=== PATIENT | male | born 1980 | race Caucasian/White ===

== ENCOUNTER 2017-01-31 11:10 | Inpatient (IN) | payer OTHER ==
[~2017-01-31] VITALS: Ht 179.1 cm; Wt 106.3 kg
[~2017-01-31 11:10] MED LIST: CITALOPRAM HBR20 MG PO; FLEXERIL10 MG PO; IBUPROFEN200 M1 PO; KEFLEX500 MG PO; KLONOPIN0.5 M1 PO; MOTRIN800 MG PO; NAPROSYN500 MG PO; NOHOMEMEDS; PERCOCET 5/31 TABLET PO; PERCOCET 7.51 TABLET PO; PRILOSEC OTC20 MG PO; TRAMADOL HCL50 MG PO; ULTRACET1 TABLET PO; ULTRAM50 MG PO; VALIUM5 MG PO; ZOFRAN ODT8 MG PO
[2017-01-31 11:48] LABS: HEMATOCRIT 36.6 % (38.0-50.0); MCH 28.5 PG (29.0-34.0); MCHC 33.6 G/DL (30.0-36.0); MCV 84.7 FL (86-99); MEAN PLAT.VOLUME 9.8 uM^3 (9.0-12.4); PLATELET COUNT 216 K/uL (156-360); RBC DIS.WIDTH-CV 12.9 % (11.8-14.6); RBC DIS.WIDTH-SD 39.8 % (39-53); RED BLOOD COUNT 4.32 M/uL (4.00-5.50); WHITE BLOOD COUNT 9.6 K/uL (4.1-10.2)
[2017-01-31 11:49] LABS: INTER. NORMALIZED RATIO 1.1; PROTHROMBIN TIME 12.9 SEC (10.2-12.9)
[2017-01-31 11:50] LABS: CHLORIDE 105 mEq/L (99-109); POTASSIUM 4.1 mEq/L (3.7-5.4); SODIUM 138 mEq/L (136-147)
[2017-01-31 11:51] LABS: GLUCOSE 89 mg/dL (70-99)
[2017-01-31 11:53] LABS: ANION GAP 9 MEQ/L (2-14)
[2017-01-31 11:55] LABS: GFR ESTIMATE (CALCULATED) > 59 mL/min/
[2017-01-31 11:56] LABS: UREA NITROGEN (BUN) 17 mg/dL (9-23)
[2017-01-31 12:03] LABS: TROP-I INTERPRETATION NEGATIVE; TROPONIN-I < 0.01 ng/mL (0.0-0.30)
[2017-01-31] MEDS ORDERED: ALPRAZOLAM2 MG PO ×2 (14:27→14:28)
[2017-01-31] MEDS ORDERED: OMEPRAZOLE20 MG PO (14:28)
[2017-01-31] MEDS ORDERED: OXYCODONE HCL5 MG PO (14:30)
[2017-01-31] MEDS ORDERED: MELOXICAM15 MG PO (14:31)
[2017-01-31] MEDS ORDERED: FLEXERIL10 MG PO (14:33)
[2017-01-31] MEDS ORDERED: METHADONE10 MG/1 M1 PO (14:34)
[2017-01-31] MEDS ORDERED: CITALOPRAM HBR40 MG PO (14:37)
[2017-01-31] MEDS ORDERED: VENLAFAXINE HC150 M1 PO (14:38)
[2017-01-31 16:52] VITALS: BP 117/62
[2017-01-31 19:00] VITALS: BP 114/76
[2017-01-31 23:31] VITALS: BP 91/59
[2017-02-01 05:56] LABS: EOSINOPHIL (%) 6.1 % (0-5); EOSINOPHIL COUNT 0.3 K/uL (0-0.3); HEMATOCRIT 31.8 % (38.0-50.0); IMMATURE GRANULOCYTE (%) 0.2 % (0.0-0.7); INSTRUMENT ABS NEUTROPHIL CT 2.1 K/uL; MCHC 32.7 G/DL (30.0-36.0); MCV 85.7 FL (86-99); MONOCYTE COUNT 0.3 K/uL (0-0.8); NEUTROPHIL (%) 45.1 % (45-76); NEUTROPHIL COUNT 2.1 K/uL (1.8-6.4); RBC DIS.WIDTH-CV 12.8 % (11.8-14.6); RBC DIS.WIDTH-SD 39.8 % (39-53); RED BLOOD COUNT 3.71 M/uL (4.00-5.50); WHITE BLOOD COUNT 4.7 K/uL (4.1-10.2)
[2017-02-01 06:03] LABS: ALKALINE PHOSPHATASE 63 IU/L (3-129); ANION GAP 7 MEQ/L (2-14); CHLORIDE 103 MEQ/L (99-109); GFR ESTIMATE (CALCULATED) > 59 mL/min/; POTASSIUM 3.8 MEQ/L (3.7-5.4); SAMPLE HEMOLYSIS CHECK 1; SAMPLE ICTERIC CHECK 0; SAMPLE LIPEMIA CHECK 0; SODIUM 137 MEQ/L (136-147); TOTAL BILIRUBIN 0.4 MG/DL (0.0-1.0); UREA NITROGEN (BUN) 14 mg/dL (9-23)
[2017-02-01 06:05] LABS: GLUCOSE 119 mg/dL (70-99)
[2017-02-01 06:33] LABS: MEAN PLAT.VOLUME 10.1 uM^3 (9.0-12.4); PLAT.SUFFICIENCY DECREASED
[2017-02-01 06:54] LABS: PLATELET COUNT 137 K/uL (156-360)
[2017-02-01 08:03] VITALS: BP 106/58
[2017-02-01 11:10] VITALS: BP 107/55
[2017-02-01 16:00] VITALS: BP 111/62
[2017-02-01 19:15] VITALS: BP 142/75
[2017-02-01 23:34] VITALS: BP 136/65
[2017-02-02 04:00] VITALS: BP 108/60
[2017-02-02 04:24] VITALS: BP 108/62
[2017-02-02] MEDS ORDERED: AUGMENTIN875 MG PO (09:23)
[2017-02-02] MEDS ORDERED: PREDNISONE10 MG PO (09:27)
== END 2017-02-02 10:45 | disposition home or self-care (01) | DRG 862 ==
LOC: EME 11:10 → EDOF 13:57 → 5WEST 13:57 → EDOF 13:57 → ENRESERV 14:03 → 5WEST 16:34 → CANRESERV 02-01 09:39 → ENRESERV 02-01 09:39 → 5WEST 02-02 10:45
PROVIDERS: Emergency Medicine; Hospitalist
DX: T81.4XXA Infection following a procedure, initial encounter (principal); L03.115 Cellulitis of right lower limb; R78.81 Bacteremia; B95.5 Unspecified streptococcus as the cause of diseases classified elsewhere; J18.9 Pneumonia, unspecified organism; E86.0 Dehydration; R09.02 Hypoxemia; D64.9 Anemia, unspecified; F32.9 Major depressive disorder, single episode, unspecified; F41.9 Anxiety disorder, unspecified; I25.10 Atherosclerotic heart disease of native coronary artery without angina pectoris; F11.20 Opioid dependence, uncomplicated; M54.5 Low back pain; G89.29 Other chronic pain; R00.0 Tachycardia, unspecified; R59.1 Generalized enlarged lymph nodes; F17.200 Nicotine dependence, unspecified, uncomplicated
CPT/HCPCS: 71010; 71275; 73630; 73720; 80048; 80053; 80202; 83605; 84484; 85025; 85027; 85610; 87040; 87077; 87186; 87801; 90686; 93005; 93971; 94667; 99202; 99281; 99285; G0378; J0295; J1170; J1644; J2930; J3010; J3370; J7030; J7050

== ENCOUNTER 2017-03-09 15:26 | Emergency (ER) | payer OTHER ==
[~2017-03-09] VITALS: Ht 180.3 cm; Wt 108.6 kg
[~2017-03-09 15:26] MED LIST changes: +ALPRAZOLAM2 MG PO; +AUGMENTIN875 MG PO; +CITALOPRAM HBR40 MG PO; +MELOXICAM15 MG PO; +METHADONE10 MG/1 M1 PO; +OMEPRAZOLE20 MG PO; +OXYCODONE HCL5 MG PO; +PREDNISONE10 MG PO; +VENLAFAXINE HC150 M1 PO
[2017-03-09 16:02] LABS: EOSINOPHIL (%) 3.4 % (0-5); EOSINOPHIL COUNT 0.3 K/uL (0-0.3); HEMATOCRIT 37.9 % (38.0-50.0); IMMATURE GRANULOCYTE (%) 0.2 % (0.0-0.7); INSTRUMENT ABS NEUTROPHIL CT 4.7 K/uL; LYMPHOCYTE COUNT 3.5 K/uL (1.0-2.8); MCH 28.6 PG (29.0-34.0); MCHC 34.8 G/DL (30.0-36.0); MEAN PLAT.VOLUME 9.9 uM^3 (9.0-12.4); MONOCYTE (%) 6.3 % (3-12); MONOCYTE COUNT 0.6 K/uL (0-0.8); NEUTROPHIL (%) 51.2 % (45-76); NEUTROPHIL COUNT 4.7 K/uL (1.8-6.4); PLATELET COUNT 261 K/uL (156-360); RBC DIS.WIDTH-CV 12.4 % (11.8-14.6); RBC DIS.WIDTH-SD 37.1 % (39-53); RED BLOOD COUNT 4.62 M/uL (4.00-5.50); WHITE BLOOD COUNT 9.1 K/uL (4.1-10.2)
[2017-03-09 16:10] LABS: CHLORIDE 105 mEq/L (99-109); POTASSIUM 3.9 mEq/L (3.7-5.4); SODIUM 139 mEq/L (136-147)
[2017-03-09 16:12] LABS: GLUCOSE 119 mg/dL (70-99)
[2017-03-09 16:13] LABS: ANION GAP 9 MEQ/L (2-14)
[2017-03-09 16:16] LABS: GFR ESTIMATE (CALCULATED) > 59 mL/min/ (58.99-99999)
[2017-03-09 16:17] LABS: UREA NITROGEN (BUN) 14 mg/dL (9-23)
[2017-03-09] MEDS ORDERED: PERCOCET 5/31 TABLET PO (18:23)
[2017-03-09 18:46] VITALS: BP 113/77
== END 2017-03-09 18:47 | disposition home or self-care (01) ==
LOC: EME 15:26
DX: B07.0 Plantar wart (principal); Z76.0 Encounter for issue of repeat prescription; F41.9 Anxiety disorder, unspecified; F32.9 Major depressive disorder, single episode, unspecified; F17.200 Nicotine dependence, unspecified, uncomplicated; Z88.6 Allergy status to analgesic agent; Z88.5 Allergy status to narcotic agent
CPT/HCPCS: 80048; 83605; 85025; 99281; 99284

== ENCOUNTER 2017-07-17 21:07 | Inpatient (IN) | payer OTHER ==
[~2017-07-17] VITALS: Ht 177.8 cm; Wt 101.2 kg
[2017-07-17 22:22] LABS: HEMATOCRIT 41.6 % (38.0-50.0); HEMOGLOBIN 14.5 G/DL (12.5-16.6); MCH 28.9 PG (29.0-34.0); MCHC 34.9 G/DL (30.0-36.0); PLATELET COUNT 293 K/uL (156-360); RBC DIS.WIDTH-CV 12.6 % (11.8-14.6); RBC DIS.WIDTH-SD 37.7 % (39-53); RED BLOOD COUNT 5.01 M/uL (4.00-5.50); WHITE BLOOD COUNT 14.5 K/uL (4.1-10.2)
[2017-07-17 22:42] LABS: TROP-I INTERPRETATION NEGATIVE; TROPONIN-I 0.01 ng/mL (0.0-0.30)
[2017-07-17 22:43] LABS: CHLORIDE 104 mEq/L (99-109); POTASSIUM 3.6 mEq/L (3.7-5.4); SODIUM 142 mEq/L (136-147)
[2017-07-17 22:45] LABS: CK-MB 2.3 ng/mL (0.0-4.9); GLUCOSE 101 mg/dL (70-99)
[2017-07-17 22:49] LABS: CREATININE 1.1 mg/dL (0.6-1.3); GFR ESTIMATE (CALCULATED) > 59 mL/min/ (58.99-99999)
[2017-07-17 22:50] LABS: UREA NITROGEN (BUN) 23 mg/dL (9-23)
[2017-07-17 22:51] LABS: CKMB RELATIVE INDEX 0.4 (0.0-3.9); CREATINE KINASE 540 IU/L (1-294); TOTAL CK 540 IU/L (1-294)
[2017-07-17 22:54] LABS: SALICYLATE < 5.0 MG/DL (15-30)
[2017-07-17 22:55] LABS: ACETAMINOPHEN (TYLENOL) < 10 mcg/mL (10-30)
[2017-07-17 23:00] LABS: BASE EXCESS -0.4 mEq/L (-3 to +3); BICARBONATE 25.4 mEq/L (22-26); CARBOXY HGB 1.8 % (0-5); PCO2 45 mm Hg (35-45); PO2 227 mm Hg (80-100); pH 7.36 (7.35-7.45)
[2017-07-17 23:01] LABS: DEVICE 840; FI02 100 %; MECHANICAL RATE 16 resp/min; MODE AC; PEEP 5 CM/H20; SITE LR; TIDAL VOLUME 500 ML
[2017-07-18] VITALS (24 sets, daily range): BP systolic 95–142; BP diastolic 54–91
[2017-07-18 00:10] LABS: APPEARANCE TURBID ((CLEAR)); BILIRUBIN NEGATIVE; BLOOD MODERATE; COLOR AMBER ((YELLOW)); GLUCOSE (STRIP) NEGATIVE; KETONES NEGATIVE; LEUKOCYTES NEGATIVE; NITRITE NEGATIVE; PROTEIN (STRIP) 30; SPECIFIC GRAVITY 1.029 (1.000-1.030)
[2017-07-18 00:19] LABS: BACTERIA 3+ /HPF; EPITHELIAL CELLS NONE SEEN /HPF; MUCUS 2+ /LPF; RED BLOOD CELLS 0-5 /HPF (0-5); UCUL ADDED? YES; WHITE BLOOD CELLS NONE SEEN /HPF (0-5)
[2017-07-18 00:28] LABS: AMPHETAMINE PRESUMPTIVE POSITIVE (500 ng/mL); BARBITURATES NEGATIVE (200 ng/mL); BENZODIAZEPINES PRESUMPTIVE POSITIVE (150 ng/mL); BUPRENORPHINE NEGATIVE (10 ng/mL); COCAINE NEGATIVE (150 ng/mL); METHADONE PRESUMPTIVE POSITIVE (200 ng/mL); METHAMPHETAMINE NEGATIVE (500 ng/mL); OPIATES (MORPHINE) NEGATIVE (100 ng/mL); OXYCODONE NEGATIVE (100 ng/mL); PHENCYCLIDINE NEGATIVE (25 ng/mL); PROPOXYPHENE NEGATIVE (300 ng/mL); THC CANNABINOIDS NEGATIVE (50 ng/mL); TRICYCLIC ANTIDEPRESSANTS NEGATIVE (300 ng/mL)
[2017-07-18 00:52] LABS: TRIGLYCERIDES 133 MG/DL (Normal: <150)
[2017-07-18 01:02] LABS: BENZODIAZEPINES, URINE SCREEN POSITIVE (200 ng/mL)
[2017-07-18 01:07] LABS: BASE EXCESS -1.2 mEq/L (-3 to +3); BICARBONATE 24.3 mEq/L (22-26); CARBOXY HGB 1.9 % (0-5); METHEMOGLOBIN 0.9 % (0-1.5); PCO2 43 mm Hg (35-45); PO2 130 mm Hg (80-100); SITE LR; pH 7.36 (7.35-7.45)
[2017-07-18 01:08] LABS: DEVICE 840; FI02 60 %; MECHANICAL RATE 16 resp/min; MODE AC; PEEP 5 CM/H20; TIDAL VOLUME 500 ML; TOTAL RESP RATE 16 resp/min
[2017-07-18 05:58] LABS: HEMATOCRIT 36.5 % (38.0-50.0); MCH 27.5 PG (29.0-34.0); MCHC 33.2 G/DL (30.0-36.0); PLATELET COUNT 250 K/uL (156-360); RBC DIS.WIDTH-CV 12.5 % (11.8-14.6); RBC DIS.WIDTH-SD 37.6 % (39-53); WHITE BLOOD COUNT 12.4 K/uL (4.1-10.2)
[2017-07-18 06:09] LABS: HEMOGLOBIN 12.1 G/DL (12.5-16.6)
[2017-07-18 07:56] LABS: CHLORIDE 106 MEQ/L (99-109); CREATINE KINASE 2332 IU/L (1-294); CREATININE 0.9 MG/DL (0.6-1.3); GFR ESTIMATE (CALCULATED) > 59 mL/min/ (58.99-99999); GLUCOSE 103 mg/dL (70-99); POTASSIUM 4.2 MEQ/L (3.7-5.4); SODIUM 139 MEQ/L (136-147); UREA NITROGEN (BUN) 18 mg/dL (9-23)
[2017-07-18] MEDS ORDERED: PROZAC10 MG PO (10:07)
[2017-07-18] MEDS ORDERED: XANAX1 MG PO (10:08)
[2017-07-18] MEDS ORDERED: XANAX2 MG PO (10:08)
[2017-07-18] MEDS ORDERED: METHADONE1 MG/1 ML PO (11:37)
[2017-07-19] VITALS (24 sets, daily range): BP systolic 88–123; BP diastolic 53–77
[2017-07-19 05:40] LABS: BASE EXCESS -0.8 mEq/L (-3 to +3); BICARBONATE 23.2 mEq/L (22-26); CARBOXY HGB 1.6 % (0-5); COMMENTS - BLOOD GASES C+; DEVICE VENT; FI02 30 %; MECHANICAL RATE 16 resp/min; METHEMOGLOBIN 1.4 % (0-1.5); MODE A/C; PCO2 35 mm Hg (35-45); PEEP 5 CM/H20; PO2 83 mm Hg (80-100); SITE RR; TIDAL VOLUME 500 ML; TOTAL RESP RATE 16 resp/min; pH 7.43 (7.35-7.45)
[2017-07-19 06:14] LABS: BASOPHIL (%) 0.1 % (0-1); EOSINOPHIL (%) 2.8 % (0-5); EOSINOPHIL COUNT 0.2 K/uL (0-0.3); HEMATOCRIT 29.5 % (38.0-50.0); IMMATURE GRANULOCYTE (%) 0.3 % (0.0-0.7); LYMPHOCYTE (%) 25.8 % (15-42); LYMPHOCYTE COUNT 1.8 K/uL (1.0-2.8); MCH 28.3 PG (29.0-34.0); MCHC 33.6 G/DL (30.0-36.0); MCV 84.3 FL (86-99); MONOCYTE (%) 6.9 % (3-12); MONOCYTE COUNT 0.5 K/uL (0-0.8); NEUTROPHIL (%) 64.1 % (45-76); NEUTROPHIL COUNT 4.4 K/uL (1.8-6.4); PLATELET COUNT 201 K/uL (156-360); RBC DIS.WIDTH-CV 12.6 % (11.8-14.6); RBC DIS.WIDTH-SD 37.8 % (39-53); WHITE BLOOD COUNT 6.8 K/uL (4.1-10.2)
[2017-07-19 06:26] LABS: ALBUMIN 2.7 G/DL (3.2-4.8); ALKALINE PHOSPHATASE 66 IU/L (3-129); ALT (GPT) 26 IU/L (3-49); AST (GOT) 57 IU/L (2-34); CHLORIDE 109 MEQ/L (99-109); CREATININE 0.8 MG/DL (0.6-1.3); GFR ESTIMATE (CALCULATED) > 59 mL/min/ (58.99-99999); SODIUM 141 MEQ/L (136-147); TOTAL BILIRUBIN 0.5 MG/DL (0.0-1.0); UREA NITROGEN (BUN) 8 mg/dL (9-23)
[2017-07-19 06:27] LABS: GLUCOSE 72 mg/dL (70-99); POTASSIUM 3.2 MEQ/L (3.7-5.4)
[2017-07-19 06:41] LABS: HEMOGLOBIN 9.9 G/DL (12.5-16.6)
[2017-07-20] VITALS (11 sets, daily range): BP systolic 100–137; BP diastolic 59–96
[2017-07-20 05:53] LABS: BASOPHIL (%) 0.3 % (0-1); EOSINOPHIL (%) 4.3 % (0-5); EOSINOPHIL COUNT 0.3 K/uL (0-0.3); HEMATOCRIT 32.7 % (38.0-50.0); HEMOGLOBIN 10.7 G/DL (12.5-16.6); IMMATURE GRANULOCYTE (%) 0.3 % (0.0-0.7); LYMPHOCYTE (%) 27.4 % (15-42); LYMPHOCYTE COUNT 1.6 K/uL (1.0-2.8); MCH 27.9 PG (29.0-34.0); MCHC 32.7 G/DL (30.0-36.0); MCV 85.4 FL (86-99); MONOCYTE (%) 6.7 % (3-12); MONOCYTE COUNT 0.4 K/uL (0-0.8); NEUTROPHIL COUNT 3.6 K/uL (1.8-6.4); PLATELET COUNT 207 K/uL (156-360); RBC DIS.WIDTH-CV 12.7 % (11.8-14.6); RBC DIS.WIDTH-SD 39.2 % (39-53); RED BLOOD COUNT 3.83 M/uL (4.00-5.50); WHITE BLOOD COUNT 5.8 K/uL (4.1-10.2)
[2017-07-20 06:21] LABS: ALBUMIN 2.9 G/DL (3.2-4.8); ALKALINE PHOSPHATASE 60 IU/L (3-129); ALT (GPT) 34 IU/L (3-49); AST (GOT) 62 IU/L (2-34); CHLORIDE 108 MEQ/L (99-109); CREATININE 0.9 MG/DL (0.6-1.3); GFR ESTIMATE (CALCULATED) > 59 mL/min/ (58.99-99999); GLUCOSE 80 mg/dL (70-99); MAGNESIUM 1.8 mg/dl (1.3-2.7); PHOSPHORUS 3.9 mg/dL (2.5-4.9); SODIUM 142 MEQ/L (136-147); TOTAL BILIRUBIN 0.6 MG/DL (0.0-1.0); UREA NITROGEN (BUN) 5 mg/dL (9-23)
[2017-07-20 06:23] LABS: POTASSIUM 4.1 MEQ/L (3.7-5.4)
[2017-07-20 10:14] LABS: CREATINE KINASE 2869 IU/L (1-294)
== END 2017-07-20 14:13 | DRG 917 ==
LOC: EME → EDBD 21:07 → EME 21:07 → 4WEST 22:32 → EDOF 22:32 → 4WEST 22:32 → ENRESERV 22:33 → 4WEST 07-18 01:27
PROVIDERS: Emergency Medicine; Specialist; Surgery
PROC: 0BH17EZ Insertion of Endotracheal Airway into Trachea, Via Natural or Artificial Opening (ICD-10-PCS; principal; 2017-07-17)
PROC: 5A1945Z Respiratory Ventilation, 24-96 Consecutive Hours (ICD-10-PCS; principal; 2017-07-17)
DX: T40.2X2A Poisoning by other opioids, intentional self-harm, initial encounter (principal); T42.4X2A Poisoning by benzodiazepines, intentional self-harm, initial encounter; J96.00 Acute respiratory failure, unspecified whether with hypoxia or hypercapnia; J15.212 Pneumonia due to Methicillin resistant Staphylococcus aureus; M62.82 Rhabdomyolysis; E87.6 Hypokalemia; E83.42 Hypomagnesemia; F41.9 Anxiety disorder, unspecified; F32.9 Major depressive disorder, single episode, unspecified; F17.200 Nicotine dependence, unspecified, uncomplicated; Z23 Encounter for immunization; Z79.891 Long term (current) use of opiate analgesic
CPT/HCPCS: 36600; 71045; 80048; 80048 91; 80053; 81003; 82550; 82550 91; 82553; 82803; 83735; 83880; 84100; 84478; 84484; 84999; 85025; 85027; 85610; 87070; 87077; 87086; 87147; 87186; 87205; 87641; 93005; 94002; 94003; 94640; 94640 76; 94760; 94799; 99202; 99281; 99285; G0480; J1630; J1650; J2060; J2310; J2704; J3475; J3480; J7030; S0028

== ENCOUNTER 2017-07-20 12:06 | Inpatient (IN) | payer OTHER ==
[~2017-07-20] VITALS: Ht 177.8 cm; Wt 101.2 kg
[~2017-07-20 12:06] MED LIST changes: +METHADONE1 MG/1 ML PO; +PROZAC10 MG PO; +XANAX1 MG PO; +XANAX2 MG PO
[2017-07-20 14:30] VITALS: BP 112/55
[2017-07-20 14:33] VITALS: BP 112/55
[2017-07-21 07:51] VITALS: BP 126/85
[2017-07-21 15:29] VITALS: BP 113/72
[2017-07-22 07:33] VITALS: BP 113/73
== END 2017-07-22 10:18 | disposition home or self-care (01) | DRG 897 ==
LOC: 1WEST 12:06 → ENRESERV 12:36 → 1WEST 14:18
DX: F13.10 Sedative, hypnotic or anxiolytic abuse, uncomplicated (principal); F11.20 Opioid dependence, uncomplicated; F41.9 Anxiety disorder, unspecified; F32.9 Major depressive disorder, single episode, unspecified; F17.200 Nicotine dependence, unspecified, uncomplicated; Z91.5 Personal history of self-harm
CPT/HCPCS: Q0177